=== PATIENT | female | born 1935 | race Caucasian/White ===

== ENCOUNTER 2016-05-25 06:00 | Day surgery (SDC) | payer MEDICARE ==
[2016-05-25] MEDS ORDERED: IV START KIT ONE (06:08)
[2016-05-25] MEDS ORDERED: LACTATED RINGERS 1,000 ML ONE (06:08)
[2016-05-25] MEDS ORDERED: MIDAZOLAM HCL 5 MG/5 ML VIAL ONE (06:44)
[2016-05-25] MEDS ORDERED: FENTANYL 250 MCG/5 ML AMP ONE (06:45)
[2016-05-25] MEDS ORDERED: FENTANYL 250 MCG/5 ML AMP IV PRN (07:04)
[2016-05-25] MEDS ORDERED: MIDAZOLAM HCL 5 MG/5 ML VIAL IV PRN (07:04)
[2016-05-25] MEDS ORDERED: LACTATED RINGERS 1,000 ML IV SCH (07:15)
== END 2016-05-25 08:19 | disposition home or self-care (01) ==
LOC: SDC 06:00
PROVIDERS: ATTEND Family Medicine
PROC: 0DJD8ZZ Inspection of Lower Intestinal Tract, Via Natural or Artificial Opening Endoscopic (ICD-10-PCS; principal; 2016-05-25)
DX: Z12.11 Encounter for screening for malignant neoplasm of colon (principal); K59.00 Constipation, unspecified; Z85.3 Personal history of malignant neoplasm of breast; E78.2 Mixed hyperlipidemia; I10 Essential (primary) hypertension; J30.9 Allergic rhinitis, unspecified; Z88.5 Allergy status to narcotic agent; Z88.8 Allergy status to other drugs, medicaments and biological substances; Z88.6 Allergy status to analgesic agent
CPT/HCPCS: J3010; J2250; J7120; G0121